=== PATIENT | male | born 1995 | race Caucasian/White ===

== ENCOUNTER 2018-01-03 10:05 | Emergency (ER) | payer OTHER ==
--- NOTE | 2018-01-03 11:00 | XRAY Report ---
Reason: pain/swelling Procedure Date: 01/03/2018 Accession Number: [id number] / [id number] Procedure: XR - Knee 4 View LT CPT Code: FULL RESULT: EXAM: LEFT KNEE RADIOGRAPHY EXAM DATE: 01/03/2018 10:44 AM. CLINICAL HISTORY: Pain/swelling. COMPARISON: None. TECHNIQUE: 3 views. FINDINGS: Bones: Normal. No fractures or bone lesions. Joints: Normal. No effusion. No subluxations. Soft Tissues: Normal. No soft tissue swelling. IMPRESSION: No fracture or dislocation. RADIA
--- NOTE | 2018-01-03 11:42 | ED Physician Documentation ---
PD HPI LOWER EXT INJURY - Stated complaint Stated Complaint: LEFT LEG INJ - Chief complaint Chief Complaint: Ext Problem - History obtained from History obtained from: Patient - History of Present Illness PD HPI LOW EXT INJURY LOCATION: Left (Healthy 22-year-old gentleman, active duty in the [employer] who hyperextended his left knee playing basketball yesterday and has some difficulty walking but is able to walk and bear weight. The knee is swollen. He declines prescription pain medication. No other injuries.) Review of Systems Constitutional: denies: Fever, Chills, Myalgias GI: denies: Abdominal Pain, Nausea, Vomiting : reports: Reviewed and negative PD PAST MEDICAL HISTORY - Past Medical History Past Medical History: No - Present Medications Home Medications: Ambulatory Orders Medication Instructions Recorded Confirmed Ibuprofen [Motrin] 800 mg PO Q8H PRN #30 tablet 01/03/18 - Allergies Allergies/Adverse Reactions: Allergies Allergy/AdvReac Type Severity Reaction Status Date / Time vancomycin Allergy Anaphylaxis Verified 01/03/18 10:22 - Social History Does the pt smoke?: No Smoking Status: Never smoker PD ED PE NORMAL - Vitals Vital signs reviewed: Yes - General General: Alert and oriented X 3, No acute distress - Extremities Extremities: Other (Left knee has a modest effusion, there is no bony tenderness of the knee. He has negative ACL, PCL, MCL, LCL testing. He does have positive grind testing with supination.) - Neuro Neuro: Alert and oriented X 3, Normal speech Results - Vitals Vitals: Vital Signs - 24 hr 01/03/18 10:20 Temperature 36.5 C Heart Rate 58 L Respiratory 15 Rate Blood Pressure 102/52 L O2 Saturation 100 Oxygen O2 Source Room air - Rads (name of study) 4v L knee Radiology: EMP read contemporaneously (Negative) Departure - Departure Disposition: 01 Home, Self Care Clinical Impression: Injury of meniscus of left knee Qualifiers: Encounter type: initial encounter Qualified Code(s): S83.8X2A - Sprain of other specified parts of left knee, initial encounter Condition: Good Record reviewed to determine appropriate education?: Yes Instructions: ED Meniscal Injury Knee Poss Prescriptions: Ibuprofen [Motrin] 800 mg PO Q8H PRN #30 tablet PRN Reason: PAIN &/OR FEVER Comments: As discussed, the pattern of injury and examination are suggestive of may be a mild meniscus tear. Keep the splint on when up and around but you do not need to wear it while showering or sleeping. Follow-up with your doctor in a week if not better. Forms: Activity restrictions
[2018-01-03 11:51] VITALS: BP 104/54
== END 2018-01-03 11:54 | disposition home or self-care (01) ==
LOC: ED 10:05
DX: S83.8X2A Sprain of other specified parts of left knee, initial encounter (principal); X50.1XXA Overexertion from prolonged static or awkward postures, initial encounter; Y93.67 Activity, basketball
CPT/HCPCS: 99283

== ENCOUNTER 2018-01-26 12:34 | Outpatient (CLI) | payer OTHER ==
--- NOTE | 2018-01-26 20:38 | MRI Report ---
Reason: PAIN IN LEFT KNEE Procedure Date: 01/26/2018 Accession Number: [id number] / [id number] Procedure: MRI - Knee LT W/O CPT Code: FULL RESULT: EXAM: LEFT KNEE MRI WITHOUT CONTRAST EXAM DATE: 01/26/2018 01:26 PM. CLINICAL HISTORY: PAIN IN LEFT KNEE. COMPARISON: Left knee radiographs 01/03/2018. TECHNIQUE: Multiplanar, multisequence T1-weighted and fluid-sensitive sequences of the knee without contrast. Other: None. FINDINGS: Bones: No fractures. There are marrow contusions at the terminal sulcus of the lateral femoral condyle and posterior lateral tibial plateau. Articular Cartilage: Knee articular cartilage is normal at the knee. Medial Meniscus: The medial meniscus is intact. There is a vertically oriented high signal interposed between the periphery of the posterior horn of the medial meniscus and the capsular attachments, consistent with a meniscocapsular tear. Lateral Meniscus: The lateral meniscus is intact. Cruciate Ligaments: Complete tear of the mid substance fibers of the anterior cruciate ligament. The posterior cruciate ligament is intact. Collateral Ligaments: The medial collateral and lateral collateral ligamentous structures are intact. The posterior lateral corner structures are intact. Tendons: The quadriceps, patellar, semimembranosus, and popliteus tendons are unremarkable. Musculature: No edema or fatty atrophy. Other: Moderate effusion. No popliteal cyst. No loose bodies. The medial and lateral retinacula are intact. The subcutaneous tissues and fat pads are unremarkable. IMPRESSION: 1. Complete tear of the anterior cruciate ligament. 2. Meniscocapsular separation at the posterior horn of the medial meniscus. Otherwise normal appearance of the medial meniscus. 3. Intact collateral ligaments and posterior cruciate ligament. 3. Intact lateral meniscus. 4. Normal articular cartilage. [facility] MUSCULOSKELETAL RADIOLOGY SECTION
== END 2018-01-26 12:35 | disposition home or self-care (01) ==
LOC: DI 12:34
PROVIDERS: ATTEND General Practice
DX: S83.512A Sprain of anterior cruciate ligament of left knee, initial encounter (principal); S83.242A Other tear of medial meniscus, current injury, left knee, initial encounter

== ENCOUNTER 2018-05-16 06:10 | Day surgery (SDC) | payer OTHER ==
[2018-05-16] MEDS ORDERED: LACTATED RINGERS 1,000 ML IV ONE ×2 (06:35→11:28)
[2018-05-16] MEDS ORDERED: ceFAZolin 2 GM/50 ML 2 GM/50 ML BAG IV ONE (06:44)
--- NOTE | 2018-05-16 06:57 | ANESTHESIA ---
Pre-Anesthesia VS, & Labs - Diagnosis left knee acl and meniscal tear - Procedure left anterior cruciate ligament repair arthroscopic Vital Signs: Temp Pulse Resp BP Pulse Ox 36.4 C L 66 12 113/62 100 05/16/18 06:35 05/16/18 06:35 05/16/18 06:35 05/16/18 06:35 05/16/18 06:35 Height 5 ft 6 in Weight (kg) 75.3 kg Body Mass Index 27.4 - NPO >8 hours - Lab Results Lab results reviewed: Yes Home Medications and Allergies Home Medications: Ambulatory Orders Multivitamin [Daily Multiple Vitamin] 1 each PO 05/10/18 Multivitamin [Daily Multiple Vitamin] 1 each PO 05/10/18 Allergies/Adverse Reactions: Allergies Allergy/AdvReac Type Severity Reaction Status Date / Time vancomycin Allergy Anaphylaxis Verified 05/10/18 15:07 Anes History & Medical History - Anesthetic History Anesthesia Complications: reports: No previous complications Family history of Anesthesia Complications: Denies Family history of Malignant Hyperthermia: Denies - Medical History Cardiovascular: reports: None Pulmonary: reports: None Gastrointestinal: reports: None Urinary: reports: None Musculoskeletal: reports: Other Endocrine/Autoimmune: reports: None Skin: reports: None Smoking Status: Never smoker Exam General: Alert, Oriented x3, Cooperative, No acute distress Dental: WNL Mouth Openin Fingerbreadth Neck Mobility: Normal Mallampati classification: II Thyromental Distance: greater than 6 cm Respiratory: Lungs clear, Normal breath sounds, No respiratory distress, No accessory muscle use Cardiovascular: Regular rate, Normal S1, Normal S2, No murmurs Mental/Cognitive Status: Alert/Oriented X3, Normal for patient Plan Anesthesia Type: General Consent for Procedure(s) Verified and Reviewed: No Code Status: Attempt Resuscitation ASA classification: 1-Healthy patient Is this case an emergency?: No
[2018-05-16] MEDS ORDERED: EPINEPHrine 1 MG/ML AMP ONE (07:08)
[2018-05-16] MEDS ORDERED: BUPIVACAINE 0.25% PF 30 ML VIAL ONE (07:21)
[2018-05-16] MEDS ORDERED: EPINEPHrine 1 MG/ML AMP IR ONE (08:13)
[2018-05-16] MEDS ORDERED: BUPIVACAINE 0.25% PF 30 ML VIAL SUBQ ONE (08:15)
[2018-05-16] MEDS ORDERED: ONDANSETRON 4 MG/2 ML VIAL IVP ONE (08:30)
[2018-05-16] MEDS ORDERED: MORPHINE 10 MG/ML VIAL IVP ONE (08:30)
[2018-05-16] MEDS ORDERED: PROPOFOL 200 MG/20 ML VIAL IVP ONE (08:30)
[2018-05-16] MEDS ORDERED: ROCURONIUM 50 MG/5 ML VIAL IVP ONE (08:30)
[2018-05-16] MEDS ORDERED: ACETAMINOPHEN 1,000 MG/100 ML 100 ML IV ONE (08:30)
[2018-05-16] MEDS ORDERED: LIDOCAINE-MPF 2% 5 ML VIAL IM ONE (08:30)
[2018-05-16] MEDS ORDERED: ceFAZolin 2 GM/50 ML BAG IV ONE (08:30)
[2018-05-16] MEDS ORDERED: KETOROLAC 30 MG/ML VIAL IVP ONE (08:30)
[2018-05-16] MEDS: fentaNYL 100 MCG/2 ML VIAL ONE ×2 (11:08→11:23)
[2018-05-16] MEDS ORDERED: oxyCODONE 5 MG TABLET PO PRN (11:23)
[2018-05-16] MEDS ORDERED: ONDANSETRON 4 MG/2 ML VIAL IVP PRN (11:23)
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
[2018-05-16] MEDS ORDERED: ONDANSETRON 4 MG/2 ML VIAL ONE (11:46)
[2018-05-16] MEDS ORDERED: oxyCODONE 5 MG TABLET ONE (12:12)
[2018-05-16 13:52] VITALS: BP 114/62
--- NOTE | 2018-05-17 09:20 | XRAY Report ---
Reason: s/p L ACLR Procedure Date: 05/16/2018 Accession Number: [id number] / [id number] Procedure: XR - Knee 2 View LT CPT Code: FULL RESULT: EXAM: LEFT KNEE RADIOGRAPHY EXAM DATE: 05/16/2018 11:48 AM. CLINICAL HISTORY: Status post left anterior cruciate ligament repair. COMPARISON: Knee 4 view left 01/03/2018 10:33 AM. TECHNIQUE: 2 views. FINDINGS: Study is degraded by motion artifact. A knee brace system is in place. No fracture or dislocation is identified. ACL repair hardware, including bone tracts and a femoral side anchor as well as a tibial anchoring screw are now seen in expected configuration. No fracture or dislocation. Expected soft tissue gas and swelling are noted, immediate postoperative state. IMPRESSION: Expected appearance status post left ACL repair. [facility]
== END 2018-05-16 06:11 | disposition home or self-care (01) ==
LOC: SDS 06:10
PROVIDERS: ATTEND Orthopaedic Surgery
PROC: 0LBR0ZZ Excision of Left Knee Tendon, Open Approach (ICD-10-PCS; 2018-05-16)
PROC: 0SQD4ZZ Repair Left Knee Joint, Percutaneous Endoscopic Approach (ICD-10-PCS; 2018-05-16)
PROC: 0MRP47Z Replacement of Left Knee Bursa and Ligament with Autologous Tissue Substitute, Percutaneous Endoscopic Approach (ICD-10-PCS; principal; 2018-05-16 07:30)
DX: S83.512A Sprain of anterior cruciate ligament of left knee, initial encounter (principal); S83.242A Other tear of medial meniscus, current injury, left knee, initial encounter; X50.1XXA Overexertion from prolonged static or awkward postures, initial encounter
CPT/HCPCS: 29882; 29888; 73560; A9270; C1713; J0131; J0690; J7120

== ENCOUNTER 2020-09-26 18:40 | Emergency (ER) | payer MEDICAID, OTHER ==
--- NOTE | 2020-09-26 19:49 | XRAY Report ---
PROCEDURE: Ankle 3 View RT INDICATIONS: pain swelling TECHNIQUE: 3 views of the ankle were acquired. COMPARISON: None. FINDINGS: Bones: No displaced fractures or dislocations. There are a few small ossicles between the lateral m alleolus and talus which may represent small avulsion fragments. Ankle mortise is normally aligned. No suspicious bony lesions. Soft tissues: Periarticular soft tissue swelling is demonstrated over the lateral malleolus. There is a small tibiotalar joint effusion. Achilles tendon appears normal. IMPRESSION: 1. Suspected small avulsion fragments inferior to the lateral malleolus. 2. Elsewhere, no displaced fracture or dislocation. Reviewed by: Kwaku Rodrigues MD on 09/26/2020 7:47 PM PDT Approved by: Kwaku Rodrigues MD on 09/26/2020 7:47 PM PDT Station ID: [id number]
--- NOTE | 2020-09-26 19:55 | ED Physician Documentation ---
PD HPI LOWER EXT INJURY - Stated complaint Stated Complaint: RT ANKLE INJ - Chief complaint Chief Complaint: Trauma Ext - History obtained from History obtained from: Patient - Additional information Additional information: Patient comes emergency department chief complaint of right ankle injury. He states he was playing basketball when he rolled his right ankle this afternoon. He did not feel a pop or crack. No prior injury to the ankle. No other complaints at this time. Patient states it does hurt to bear weight, but he has been hobbling around on the ankle for the last few hours. Review of Systems Ten Systems: 10 systems reviewed and negative Constitutional: reports: Reviewed and negative Eyes: reports: Reviewed and negative Ears: reports: Reviewed and negative Nose: reports: Reviewed and negative Throat: reports: Reviewed and negative Cardiac: reports: Reviewed and negative Respiratory: reports: Reviewed and negative GI: reports: Reviewed and negative : reports: Reviewed and negative Skin: reports: Reviewed and negative Musculoskeletal: reports: Joint pain, Joint swelling, Pain with weight bearing Neurologic: reports: Reviewed and negative Psychiatric: reports: Reviewed and negative Endocrine: reports: Reviewed and negative Immunocompromised: reports: Reviewed and negative PD PAST MEDICAL HISTORY - Past Medical History Cardiovascular: None Respiratory: None Endocrine/Autoimmune: None GI: None : None HEENT: None Psych: None Musculoskeletal: Other Derm: None - Present Medications Home Medications: Ambulatory Orders Medication Instructions Recorded Confirmed Ibuprofen [Motrin] 800 mg PO Q8H PRN #30 tablet 01/03/18 05/16/18 Multivitamin [Daily Multiple 1 each PO DAILY 05/10/18 05/16/18 Vitamin] - Allergies Allergies/Adverse Reactions: Allergies Allergy/AdvReac Type Severity Reaction Status Date / Time vancomycin Allergy Anaphylaxis Verified 09/26/20 18:52 - Social History Does the pt smoke?: No Smoking Status: Never smoker PD ED PE NORMAL - Vitals Vital signs reviewed: Yes - General General: Alert and oriented X 3, No acute distress, Well developed/nourished - HEENT HEENT: Atraumatic, PERRL, EOMI, Moist mucous membranes - Neck Neck: Supple, no meningeal sign - Cardiac Cardiac: RRR, No murmur - Respiratory Respiratory: No respiratory distress, Clear bilaterally - Derm Derm: Warm and dry - Extremities Extremities: No deformity, Other (Mild edema over right lateral malleolus. No deformity. Medial malleolus is without edema. There is point tenderness over the talofibular ligament.) - Neuro Neuro: Alert and oriented X 3 - Psych Psych: Normal mood, Normal affect Results - Vitals Vitals: Vital Signs - 24 hr 09/26/20 09/26/20 18:49 20:01 Temperature 36.9 C 36.7 C Heart Rate 64 64 Respiratory 16 16 Rate Blood Pressure 124/81 H 110/62 O2 Saturation 98 98 Oxygen O2 Source Room air - Rads (name of study) XR R ankle Radiology: Final report received, EMP read indepedently, See rad report (neg) PD MEDICAL DECISION MAKING - ED course Complexity details: reviewed results, re-evaluated patient, considered differential, d/w patient ED course: Patient was sent for x-ray which was negative. I discussed with him the self- limited nature of his symptoms. We have discussed a Velcro splint for extra support and for comfort and the patient like to have this. He would also like a pair of crutches. He understands he may self-discontinue either the crutches or the splint if he does not feel he needs them anymore. We have discussed the usual indications for return follow-up. Departure - Departure Disposition: 01 Home, Self Care Condition: Stable Instructions: ED Sprain Ankle W X Ray Comments: Your x-ray looks great. You have twisted and sprained your ankle today. You may bear weight as tolerated. Please avoid any strenuous activity until your ankle is feeling better. You may wear a supportive Velcro splint if needed for extra support. Discharge Date/Time: 09/26/20 20:05
[2020-09-26 20:02] VITALS: BP 110/62
== END 2020-09-26 20:05 | disposition home or self-care (01) ==
LOC: ED 18:40
DX: S93.401A Sprain of unspecified ligament of right ankle, initial encounter (principal); X50.1XXA Overexertion from prolonged static or awkward postures, initial encounter; Y93.67 Activity, basketball
CPT/HCPCS: 99282; 99283

== ENCOUNTER 2021-09-03 14:04 | Outpatient (CLI) | payer MEDICAID ==
--- NOTE | 2021-09-03 16:20 | XRAY Report ---
PROCEDURE: Knee 3 View LT INDICATIONS: SPRAIN OF LEFT KNEE TECHNIQUE: 3 views of the left knee were acquired. COMPARISON: Left knee radiographs 05/16/2018. FINDINGS: Bones: Stable postsurgical changes from prior anterior cruciate ligament reconstruction. No acute fra ctures or dislocations. No suspicious bony lesions. Soft tissues: Moderate joint effusion. No suspicious soft tissue calcifications. IMPRESSION: Postoperative changes from prior anterior cruciate ligament reconstruction. Moderate chance nt effusion. No acute osseous abnormality. If symptoms persist or there is continued clinical concern , further evaluation with MRI or CT may be helpful. Reviewed by: Meir Conley MD on 09/03/2021 4:19 PM PDT Approved by: Meir Conley MD on 09/03/2021 4:19 PM PDT Station ID: [id number]
== END 2021-09-03 23:59 | disposition home or self-care (01) ==
LOC: DI.N 14:04
PROVIDERS: ATTEND Nurse Practitioner
DX: S83.92XA Sprain of unspecified site of left knee, initial encounter (principal); M25.462 Effusion, left knee

== ENCOUNTER 2021-12-13 10:44 | Outpatient (CLI) | payer MEDICAID ==
--- NOTE | 2021-12-13 15:37 | MRI Report ---
PROCEDURE: Knee LT W/O INDICATIONS: SPRAIN OF KNEE TECHNIQUE: Noncontrast sagittal PD fast spin echo and T2 fast spin echo with fat saturation, sagittal 3-D spoile d GE with fat saturation; coronal T1 spin echo and PD fast spin echo with fat saturation, and axial P D fast spin echo with fat saturation through the knee. COMPARISON: Left knee radiographs 09/03/2021. Left knee MRI 01/26/2018 FINDINGS: Image quality: Excellent. Anterior cruciate ligament: Postsurgical changes are seen from prior anterior cruciate ligament pooja nstruction. The femoral tunnel is located at the 1-2 o'clock position in the intercondylar notch with the orifice approximately 9 mm from the intersection of the posterior femoral cortex with Blumensaat 's line. The tibial tunnel is located in the anterior to middle thirds of the central tibial plateau. Mild artifact is seen in the intercondylar notch that obscures the proximal to midportion of the lig ament graft, and recurrent tearing is not excluded. However, there is suggestion of some ligament fib ers remaining in continuity. There is no significant arthrofibrosis. Posterior cruciate ligament: Intact. Medial collateral ligament: Intact. Lateral collateral ligament: Intact. Medial meniscus: Areas of linear intermediate signal intensity within the posterior horn and body of the medial meniscus are less specific in the post surgical setting and may represent fibrovascular g ranulation tissue versus less likely a subtle meniscal tear. Lateral meniscus: Intact. Medial and lateral tendons: The semimembranosus tendon insertions appear intact. Visualized portion s of the pes anserinus tendons appear normal. The popliteus tendon appears intact. Iliotibial band appears normal. Anterior structures: The surgical changes are seen from prior patellar tendon harvest. There is mild patella pdamini. The distal quadriceps tendon is intact. Mild lateral patellar subluxation is seen. Mil d postsurgical scarring but no significant edema is seen in Hoffa's fat pad. Bones: Mild osseous edema is seen at the far posterior portion of the medial tibial plateau and late ral tibial plateau Articular cartilages: No focal cartilage defect identified. Soft tissues: There is a small joint effusion. There is a trace medial popliteal cyst. The musculat ure surrounding the knee is normal in bulk. IMPRESSION: 1.Postsurgical changes are seen from anterior cruciate ligament reconstruction with tunnel positionin g as described in the body report. The mid to proximal portion of the anterior cruciate ligament james t is obscured by metal artifact and tearing of the graft is not excluded. However, some of the fibers appear to remain in continuity. 2.Intermediate linear signal intensity within the medial meniscus is less specific in the posterior s etting and may represent hypervascular granulation tissue versus residual or recurrent meniscal teari ng. 3.Mild trabecular bone injuries at the far posterior portions of the medial and lateral tibial platea u, likely related to osseous contusions. 4.Postsurgical changes from patellar tendon harvest. Mild patella padmini and mild lateral patellar subl uxation. 5.Small joint effusion. Reviewed by: Meir Conley MD on 12/13/2021 3:36 PM PDT Approved by: Meir Conley MD on 12/13/2021 3:36 PM PDT Station ID: [id number]
== END 2021-12-13 10:45 | disposition home or self-care (01) ==
LOC: DI 10:44
PROVIDERS: ATTEND Physician Assistant
DX: S83.92XA Sprain of unspecified site of left knee, initial encounter (principal); M25.462 Effusion, left knee; Z98.890 Other specified postprocedural states